=== PATIENT | female | born 1995 | race Asian ===

== ENCOUNTER 2025-06-02 14:26 | Outpatient (AMB) | payer BC, SELFPAY ==
--- NOTE | 2025-06-02 14:48 | PD.RESCLINIC ---
Vital Signs 06/02/25 14:49 Height 1.6 m Height Method Stated Weight 59.194 kg Weight Measurement Method Standing Scale BMI 23.1 BP 120/71 Blood Pressure Source Automatic Cuff Blood Pressure Location Left Upper Arm Position Sitting Respiration 19 Pulse 77 Pulse Source Monitor Temp 98.2 F Temp Source Oral Pulse Oximetry (%) 98 Oxygen Delivery Method Room Air Allergies/Meds Allergies & Medications Allergies No Known Allergies Allergy (Verified 06/02/25 14:49) MA Intake Visit Data Collection New Patient or Established: Established Patient (seen at [facility] within 3 years) Seen by Clinical Staff ONLY (RN/MA): No Pain Present Currently: No Pain scale:: 0 Pain Scale Used: Robertson-Carlin/Numerical PCP or OBGYN visit in last 3 months: No Do You Feel Safe at Home: Yes Authorities Contacted: N/A Smoking Status Smoking Status: Current some day smoker (OCCASIONAL) Cessation Counseling Provided: KAUSHAL was advised that quitting smoking is the single most important factor to protect the health of themselves and their family. Discussed the benefits of quitting smoking with patient. Encouraged patient to quit smoking and provided Cessation assistance materials and resources. Tobacco Use: Cigarette Years smoked: 5 Are you interested in quitting?: Yes Would you like additional Smoking Cessation Counseling?: Yes Immunization / Flu Flu Vaccine in the Last 12 Months: No Flu Vaccine Exclusion Criteria: No Exclusion Criteria Past Medical History Social History SMOKING STATUS: Smoking status: Current some day smoker (OCCASIONAL) SECOND HAND EXPOSURE: second hand exposure: No ALCOHOL: Alcohol Intake: Current ALCOHOL FREQUENCY: Alcohol Intake Frequency: holidays/special occasions only Patient Portal Questionaires PHQ-9 PHQ-2 Over the last 2 weeks, how often have you been bothered by any of the following problems? 1. Little interest or pleasure in doing things: not at all Social History Living Situation History Lives With: Family Tobacco History Smoking Status: Current some day smoker (OCCASIONAL) Second Hand Smoke Exposure: No Alcohol History Alcohol Intake: Current Alcohol Intake Frequency: holidays/special occasions only Substance Use History Substance Use: OCCASIONAL MARIJUANA USE Domestic Abuse History Do You Feel Safe at Home: Yes Review of Systems Report any current symptoms Only answer those that you have currently: Past Medical History Past Medical History Have you ever been diagnosed with any of the following: History of Present Illness HPI Narrative Sarai Craig is a 29M pmhx of scoliosis and plantar faciitis presenting to [facility]. Previously saw [facility] PCP, last saw a year ago. Wants blood work. Wants x-ray for scoliosis. Endorses more frequent mid back pain for the past three months, pain occuring every other week. Angle less than 10 degrees 8-9 years ago. Was instructed to do exercises which helped occasionally is difficult when she is in pain. Recs Lido patch, PT, tylenol then ibuprofen. Has a few lumps in breast. Previously had US every 6 months for two years with stable size and subsequently discontinued ultrasounds, last checked 4-5 years ago. Denies discharge or breast pain. Complains of plantar faciitis for a few years and limits her activities. FDLMP: May 24, Cycle 4 weeks, denies menorragia or excessive pain. No OCPs. No PAP smear ever. PMHx: as above Surgical history: none Social history: Smokes cigarettes once a month, drinks one drink a well, denies recreational or illicit drug use Allergies: NKA, NKDA Medications: Tylenol prn for pain Vaccines: Immigrated from [place] 10 years ago. Last year flu vaccine, COVID vaccines x2. Objective/Exam Narrative Physical exam: GEN: AOx3, able to speak full sentences HEENT: NC/AC, PERRLA, oral mucosa moist, neck supple CVS: RRR, S1-S2 present, no murmurs appreciated RESP: CTAB GI: soft,non distended, non tender, NBS MSK: Rt Paraspinal tenderness, no spinal tenderness or gross deformity SKIN: warm and dry DOOR PATCHER: CN II-XII and Sensation grossly intact. Assessment & Plan Diagnosis / Problem List (1) Dextroscoliosis of thoracic spine: Status: Acute Assessment & Plan: Patient was diagnosed with scoliosis at young age due to back pain constant. She reported that she did was not recommended to have any surgery because her degree of scoliosis was less than 10 degrees. And at that time it was recommended to have only conservative management. She had just physical therapy which helped controlling her pain. Plan: ? Scoliosis 4 view x-ray ?Lidocaine patch as needed ? Tylenol as needed maximum 2 g/day ? If pain continue to worsen please return to the office as soon as possible ? Referral for physical therapy (2) Breast mass, right: Status: Acute Qualifiers: Breast mass location: unspecified quadrant Qualified Code(s): N63.10 - Unspecified lump in the right breast, unspecified quadrant Assessment & Plan: Patient reported that she has right breast lumps, that has been there for long time. Denied any nipple discharge, neck swelling, pain or skin rash. Plan: ? Mammogram bilaterally ? Follow-up within 1 week after the imaging (3) Back pain: Status: Acute Qualifiers: Back pain laterality: right Back pain location: thoracic back pain Chronicity: chronic Qualified Code(s): M54.6 - Pain in thoracic spine; G89.29 - Other chronic pain Assessment & Plan: Mostly related to her scoliosis and dextroscoliosis plan as above. (4) Plantar fasciitis, bilateral: Status: Acute Assessment & Plan: Patient reported that she has bilateral foot pain, she was diagnosed by her previous PCP with plantar fasciitis. She denied any swelling, skin rash, discoloration of her foot. She reported that she uses special footwear which helped her with the pain. Plan: ? Use silicone inserts during standing or walking for extended. ? Use [id number] pain medicine when severe ? If continued to worsen will refer the patient for podiatry services (5) Establishing care with new doctor, encounter for: Status: Acute Assessment & Plan: Patient has not seen a physician for the past year. Will order for her blood work as below Plan: ? CBC ? CMP ? Lipid panel ? A1c ? TSH ? Vitamin D3 ? Follow-up 1 week after blood work ? Referral to BUSINESS SYSTEMS ADMINISTRATOR for Pap smear ? Patient was requested to bring her previous vaccine card to update her chart. Orders: Orders CBC 06/02/25 Z00.01 - Encounter for general adult medical examination with abnormal findings MARIVEL CAD screening BI 06/02/25 N63.10 - Unspecified lump in the right breast, unspecified quadrant XR scoliosis survey 4-5V 06/02/25 M41.80 - Other forms of scoliosis, site unspecified, M41.84 - Other forms of scoliosis, thoracic region, M41.9 - Scoliosis, unspecified Ambulatory Hemoglobin A1C 06/02/25 Z00.01 - Encounter for general adult medical examination with abnormal findings Lipid Panel 06/02/25 Z00.01 - Encounter for general adult medical examination with abnormal findings Vitamin D 25 Hydroxy Total 06/02/25 Z76.89 - Persons encountering health services in other specified circumstances Thyroid Stimulating Hormone 06/02/25 Z76.89 - Persons encountering health services in other specified circumstances Comprehensive Metabolic Panel 06/02/25 Z76.89 - Persons encountering health services in other specified circumstances Referrals BUSINESS SYSTEMS ADMINISTRATOR Z76.89 - Persons encountering health services in other specified circumstances Physical Therapy - Referral M41.80 - Other forms of scoliosis, site unspecified, M54.9 - Dorsalgia, unspecified Additional Assessment Attending note: I, Indra Vidal MD, attest that I was physically present for the crump portions of the service and evaluated the patient with the resident and I reviewed and discussed the case with the resident and agree with the resident's findings and plans of care as documented above. Indra Vidal MD Physician Billing Established Patient Established Patient: E/M Level 3-CPT 74312 Office Procedures [facility] Level of Care Nursing/Assessment Patient Status: Established Patient Nursing Assessment/Reassessment: Medication Reconciliation, Update PMH in EMR and Vital Signs Coordination of Care: Complex Care and Chronic Disease 1-5, Education Simp Pt/Fam, Lab and Imaging orders and Staff clarify orders Established Patient Charge Established Patient Point Assignment: 95 Established Patient Point Charge: EP Level 3 (80-115)
[2025-06-02 14:49] VITALS: BP 120/71; PULSE 77; RESP 19; TEMP 36.8; O2SAT 98; BMI 23.1
== END 2025-06-02 15:12 | disposition home or self-care (01) ==
LOC: HODAHC 14:26
PROVIDERS: PCP Student in an Organized Health Care Education/Training Program; Referring Provider Student in an Organized Health Care Education/Training Program; Supervising Provider Student in an Organized Health Care Education/Training Program
DX: Z76.89 Persons encountering health services in other specified circumstances (principal); M41.84 Other forms of scoliosis, thoracic region; N63.10 Unspecified lump in the right breast, unspecified quadrant; M54.6 Pain in thoracic spine; M72.2 Plantar fascial fibromatosis
CPT/HCPCS: 99213; G0463

== ENCOUNTER → 2025-06-20 | Outpatient (CLI) | payer BC, SELFPAY ==
--- NOTE | 2025-06-20 09:12 | XR_ITS ---
Examination: Scoliosis survey 4 views TECHNIQUE: AP lateral thoracic lumbar spine 4 views Date and time: June 20, 2025, 0937 hours INDICATIONS: Scoliosis on examination January 05, 2024 Findings: Thoracic dextroscoliosis 10 degrees Lumbar levoscoliosis 8 degrees Spina bifida S1 No fractures Intact pedicles IMPRESSION: Stable scoliosis
== END | disposition home or self-care (01) ==
PROVIDERS: PCP Student in an Organized Health Care Education/Training Program; Referring Provider Student in an Organized Health Care Education/Training Program; Visit Provider Student in an Organized Health Care Education/Training Program
DX: M41.84 Other forms of scoliosis, thoracic region (principal); M41.86 Other forms of scoliosis, lumbar region
CPT/HCPCS: 72083

== ENCOUNTER 2025-06-22 12:59 | Outpatient (AMB) | payer BC, SELFPAY ==
[2025-06-22 13:13] VITALS: BP 121/77; PULSE 77; RESP 17; TEMP 36.8; O2SAT 98; BMI 23.3
--- NOTE | 2025-06-22 13:13 | ACNOTE_ITS ---
<Statement entered by Murray Chase MD - 06/22/25 14:39> Attending note: I, Murray Chase MD, attest that I was physically present for the crump portions of the service and evaluated the patient with the resident and I reviewed and discussed the case with the resident and agree with the resident's findings and plans of care as documented above. Vital Signs 06/22/25 13:13 Height 1.6 m Height Method Stated Weight 59.931 kg Weight Measurement Method Standing Scale BMI 23.3 BP 121/77 Blood Pressure Source Automatic Cuff Blood Pressure Location Right Upper Arm Position Sitting Respiration 17 Pulse 77 Pulse Source Monitor Temp 98.2 F Temp Source Temporal Artery Scan Pulse Oximetry (%) 98 Oxygen Delivery Method Room Air Allergies/Meds Allergies & Medications Allergies No Known Allergies Allergy (Verified 06/02/25 14:49) MA Intake Visit Data Collection New Patient or Established: Established Patient (seen at [facility] within 3 years) Reason for Visit:: FOLLOW UP Pain Present Currently: No PCP or OBGYN visit in last 3 months: Yes Date of Last PCP or OBGYN visit: 06/02/25 Hx Now: No Do You Feel Safe at Home: Yes Authorities Contacted: N/A Smoking Status Smoking Status: Current some day smoker (OCCASIONAL) Cessation Counseling Provided: KAUSHAL was advised that quitting smoking is the single most important factor to protect the health of themselves and their family. Discussed the benefits of quitting smoking with patient. Encouraged patient to quit smoking and provided Cessation assistance materials and resources. Tobacco Use: Cigarette Years smoked: 8 Are you interested in quitting?: No Immunization / Flu Flu Vaccine in the Last 12 Months: No Flu Vaccine Exclusion Criteria: No Exclusion Criteria Past Medical History Social History SMOKING STATUS: Smoking status: Current some day smoker (OCCASIONAL) SECOND HAND EXPOSURE: second hand exposure: No ALCOHOL: Alcohol Intake: Current ALCOHOL FREQUENCY: Alcohol Intake Frequency: holidays/special occasions only Patient Portal Questionaires PHQ-9 PHQ-2 Over the last 2 weeks, how often have you been bothered by any of the following problems? 1. Little interest or pleasure in doing things: not at all Social History Living Situation History Lives With: Family Tobacco History Smoking Status: Current some day smoker (OCCASIONAL) Second Hand Smoke Exposure: No Alcohol History Alcohol Intake: Current Alcohol Intake Frequency: holidays/special occasions only Substance Use History Substance Use: OCCASIONAL MARIJUANA USE Domestic Abuse History Do You Feel Safe at Home: Yes Review of Systems Report any current symptoms Only answer those that you have currently: Past Medical History Past Medical History Have you ever been diagnosed with any of the following: History of Present Illness HPI Narrative Sarai Craig is a 29M pmhx of scoliosis and plantar faciitis presenting to [facility]. Previously saw [facility] PCP, last saw a year ago. Wants blood work. Wants x-ray for scoliosis. Endorses more frequent mid back pain for the past three months, pain occuring every other week. Angle less than 10 degrees 8- 9 years ago. Was instructed to do exercises which helped occasionally is difficult when she is in pain. Recs Lido patch, PT, tylenol then ibuprofen. Has a few lumps in breast. Previously had US every 6 months for two years with stable size and subsequently discontinued ultrasounds, last checked 4-5 years ago. Denies discharge or breast pain. Complains of plantar faciitis for a few years and limits her activities. FDLMP: May 24, Cycle 4 weeks, denies menorragia or excessive pain. No OCPs. No PAP smear ever. PMHx: as above Surgical history: none Social history: Smokes cigarettes once a month, drinks one drink a well, denies recreational or illicit drug use Allergies: NKA, NKDA Medications: Tylenol prn for pain Vaccines: Immigrated from [place] 10 years ago. Last year flu vaccine, COVID vaccines x2. 06/22/2025 Patient came today for x-ray results. She has not had not done any blood work or mammogram becuase she has busy job hoever she is scheduled 06/27/2025 for mammogram. She mentions that her back pain is well controlled with tylenol and has not seen a physical therapist yet. She also came requesting a doctor's note that she can not travel [place] because of her back pain. She is suppose to travel to [place] on the 06/24/2025. 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 Assessment & Plan Diagnosis / Problem List (1) Dextroscoliosis of thoracic spine: Status: Acute (2) Levoscoliosis: Status: Acute Plan Patient presented with persistent pain in her back, we did an x-ray scoliosis series and the finding was as follows Thoracic dextroscoliosis 10 degrees Lumbar levoscoliosis 8 degrees Spina bifida S1 Stable scoliosis Patient reported that she is scheduled to have a business trip to [facility] in the of this month and she cannot tolerate the flight. She reported that the flight is 19 hours and she was concerned of her back pain. She is scheduled for physical therapy later on this month. She mentions that her pain is somehow manageable with Tylenol as needed. Plan ? Follow-up with the physical therapist, pain management with Tylenol as needed ? Because of the pain and the length of the flight will give the patient a note that she is not able to tolerate a flight more than 6 to 7 hours due to her chronic back pain. - Patient's plan and care discussed with my attending, Dr. Rena Antoine MD Internal Medicine PGY-3 Office Procedures [facility] Level of Care Nursing/Assessment Patient Status: Established Patient Nursing Assessment/Reassessment: Medication Reconciliation, Update PMH in EMR and Vital Signs Coordination of Care: Complex Care and Chronic Disease 1-5, Education Complex Pt/Fam, Consent,records obtained, informed consent, Lab and Imaging orders and Results/Orders obtained Established Patient Charge Established Patient Point Assignment: 100 Established Patient Point Charge: EP Level 3 (80-115)
== END 2025-06-22 13:38 | disposition home or self-care (01) ==
LOC: HODAHC 12:59
PROVIDERS: Supervising Provider Student in an Organized Health Care Education/Training Program; Visit Provider Student in an Organized Health Care Education/Training Program
DX: M41.84 Other forms of scoliosis, thoracic region (principal); M41.86 Other forms of scoliosis, lumbar region; M54.9 Dorsalgia, unspecified; Q05.9 Spina bifida, unspecified
CPT/HCPCS: 99213; G0463